=== PATIENT | male | born 1965 | race Caucasian/White ===

== ENCOUNTER 2017-06-07 01:20 | Emergency (ER) | payer OTHER ==
[~2017-06-07] VITALS: Ht 177.8 cm; Wt 81.6 kg
[2017-06-07 01:30] VITALS: BP 149/88
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
[2017-06-07] MEDS ORDERED: TYLENOL325 MG ORAL (01:41)
[2017-06-07] MEDS ORDERED: TRAMADOL HCL50 MG ORAL (01:41)
[2017-06-07] MEDS ORDERED: BACITRACIN15 GM TOPIC (01:41)
[2017-06-07] MEDS ORDERED: IBUPROFEN600 MG ORAL (01:41)
[2017-06-07] MEDS ORDERED: Ketorolac 30mg Inj IV ONE (01:45)
[2017-06-07] MEDS ORDERED: traMADol 50mg tab ORAL ONE (01:45)
[2017-06-07] MEDS ORDERED: Bacitracin Oint UD TOPIC ONE (01:45)
[2017-06-07] MEDS ORDERED: Acetaminophen 500mg (ES) tab ORAL ONE (01:45)
[2017-06-07 02:34] VITALS: BP 149/88
== END 2017-06-07 02:36 | disposition home or self-care (01) ==
LOC: EMR 01:40
DX: T25.222A Burn of second degree of left foot, initial encounter (principal); T24.211A Burn of second degree of right thigh, initial encounter; T25.211A Burn of second degree of right ankle, initial encounter; T31.0 Burns involving less than 10% of body surface; X11.8XXA Contact with other hot tap-water, initial encounter; Y92.9 Unspecified place or not applicable
CPT/HCPCS: 96374; 99284; J1885